=== PATIENT | female | born 1975 | race Caucasian/White ===

== ENCOUNTER 2017-08-14 14:15 | Emergency (ER) | payer SELFPAY ==
[2017-08-14] MEDS ORDERED: predniSONE 20 MG TAB ONE (14:31)
== END 2017-08-14 15:28 | disposition home or self-care (01) ==
LOC: SCSER 14:15
DX: J45.901 Unspecified asthma with (acute) exacerbation (principal); J06.9 Acute upper respiratory infection, unspecified; F17.210 Nicotine dependence, cigarettes, uncomplicated
CPT/HCPCS: 94640; J7506; J7620

== ENCOUNTER 2018-06-27 21:42 | Emergency (ER) | payer SELFPAY ==
--- NOTE | 2018-06-27 23:06 | ULT ---
RIGHT LOWER EXTREMITY VENOUS DOPPLER ULTRASOUND EVALUATION 06/27/18 HISTORY: Right lower extremity pain. Multiple longitudinal and transverse images of the right lower extremity venous system is obtained us ing a multihertz linear array transducer. Real time, color flow and spectral waveform doppler analysi s demonstrates no evidence of acute or old clots seen in the right common femoral, superficial femora l, femoral profunda, popliteal vein, posterior tibial vein, post trifurcation veins and right greater saphenous vein. IMPRESSION: No evidence of right lower extremity deep venous thrombosis. POS: [facility]
== END 2018-06-27 23:18 | disposition home or self-care (01) ==
LOC: SCSER 21:42
DX: L03.115 Cellulitis of right lower limb (principal); J44.9 Chronic obstructive pulmonary disease, unspecified; F17.210 Nicotine dependence, cigarettes, uncomplicated

== ENCOUNTER 2019-10-02 12:35 | Inpatient (IN) | payer SELFPAY ==
--- NOTE | 2019-10-02 14:18 | RAD ---
PA AND LATERAL CHEST: Date: 10/02/2019 HISTORY: Cough and fever. COMPARISON: 05/12/09 study. FINDINGS: Heart size and mediastinum are within normal limits. Lungs are clear of infiltrates. No significant b priscila findings. IMPRESSION: No active intrathoracic disease. POS: [facility]
[2019-10-02] MEDS ORDERED: Acetaminophen 500 MG TAB ONE (14:21)
[2019-10-02] MEDS ORDERED: Ibuprofen 200 MG TAB ONE (14:21)
[2019-10-02 14:48] LABS: Bacteria/HPF 3+ HPF (None Seen); Bilirubin Negative (Negative); Blood, Urine 2+ (Negative); Clarity Turbid (Clear); Glucose, Urine (Dipstick) Normal (Negative); Leukocyte 500 Leu/uL (Negative); Nitrite 1+ (Negative); Protein, Urine (Dipstick) 30 mg/dL (Neg-Trace); Squamous Epithelial 0-3 HPF (0-3); Urobilinogen Normal mg/dL (Less than 2); WBC/HPF Greater than 50 HPF (0-3)
[2019-10-02] MEDS ORDERED: Morphine 4 MG/ML VIAL ONE (15:09)
[2019-10-02] MEDS ORDERED: cefTRIAXone\\ROCEPHIN 2 GM VIAL ONE (15:09)
[2019-10-02] MEDS ORDERED: Ondansetron PF 4 MG/2 ML Vial ONE (15:09)
[2019-10-02 15:28] LABS: #Lymphocytes 1.2 thou/uL (1.20-3.40); #Monocytes 1.7 thou/uL (0.11-0.59); #Neutrophils 11.8 thou/uL (1.40-6.50); %Basophils 0.2 % (0.0-1.0); %Eosinophils 0.1 % (0.0-10.0); %Lymphocytes 8.4 % (21.0-51.0); %Monocytes 11.4 % (0.0-10.0); Hemoglobin 12.2 g/dL (12.0-16.0); Mean Corpuscular HGB CONC 33.6 g/dL (32.0-36.0); Mean Corpuscular Hemoglobin 30.3 pg (27.0-31.0); Mean Corpuscular Volume 90.2 fL (78.0-98.0); Mean Platelet Volume 6.9 fL (7.4-10.4); Platelet Count 297 thou/uL (130-400); RBC Distribution Width 12.1 % (11.5-14.5); Red Blood Cell (RBC) Count 4.01 mill/uL (4.20-5.40); White Blood Cell (WBC) Count 14.8 thou/uL (4.8-10.8)
[2019-10-02 15:43] LABS: BHCG - Serum Negative (NEGATIVE); Pregs Control Background? CLEAR/WHITE (CLR/WHITE); Pregs Control Bar Appear? YES (CONTROL BAR)
[2019-10-02 15:50] LABS: ALT (SGPT) 114 U/L (8-55); AST (SGOT) 81 U/L (5-34); Albumin 3.4 g/dL (3.5-5.0); Alkaline Phosphatase 256 U/L (40-110); Anion Gap 14 mmol/L (10-20); BUN (Urea Nitrogen) 7 mg/dL (7.0-18.7); Bilirubin, Total 0.8 mg/dL (0.2-1.2); CK (CPK) 26 U/L (29-168); Calc. Creatinine Clearance 0 mL/min (70-130); Calcium 8.9 mg/dL (7.8-10.44); Carbon Dioxide 25 mmol/L (22-29); Chloride 96 mmol/L (98-107); Estimated GFR-MDRD 61; Globulin 3.5 g/dL (2.4-3.5); Glucose 113 mg/dL (70-105); Potassium 3.2 mmol/L (3.5-5.1); Protein, Total 6.9 g/dL (6.0-8.3); Sodium 132 mmol/L (136-145)
--- NOTE | 2019-10-02 16:28 | CT ---
CT Stone Protocol 10/02/2019 3:08 PM HISTORY: Fever, flulike syndrome. Urinary complaints. COMPARISON: None. Technique: Multiple contiguous axial CT images are obtained through the abdomen and pelvis without IV contrast. Coronal reformats are provided. FINDINGS: This examination is limited for the evaluation of solid organs and vascular structures due to the lac k of intravenous contrast. Lower Chest: within normal limits. Abdomen: Liver: Grossly normal non-enhanced CT appearance. Gallbladder: Within normal limits for CT imaging. Pancreas: Grossly normal nonenhanced CT appearance. Spleen: Grossly normal nonenhanced CT appearance. Adrenals: Mild symmetric thickening of the adrenal glands which may be related to adrenal hyperplasia . Kidneys: Multiple scattered nonobstructing bilateral renal calculi are seen. Largest nonobstructing c alculus midportion right kidney measures 5 mm. No hydronephrosis is present. Subcentimeter too small to characterize hypodense lesions are seen in each kidney. Minimal bilateral but symmetric ksenia nephric stranding is seen. There is mild perinephric stranding adjacent to each proximal ureter with suggestion of mild thickening of the simpson of each proximal ureter and renal pelvis. This is ove rall nonspecific on this nonenhanced CT scan exam. However, infection cannot be excluded. Ureters: No ureteral calculus is seen.. Pelvis: Urinary bladder: within normal limits. Reproductive Organs: Grossly within normal limits for nonenhanced CT appearance. Lymph Nodes: No enlarged lymph nodes. Bowel: Normal caliber loops of small bowel. Moderate amount retained fecal material in the ascending and transverse colon. Appendix: At the upper limits of normal in size, but gas is seen within the appendix. Tiny appendicol ith is present in the midportion of the appendix. Peritoneum: No free fluid, free air, or fluid collection. Retroperitoneum: within normal limits. Vessels: Abdominal aorta is normal in caliber.. Abdominal Wall: within normal limits. Bones: No suspicious lytic or sclerotic osseous lesions are identified. IMPRESSION: 1. Multiple nonobstructing bilateral renal calculi. 2. Minimal stranding adjacent to each renal pelvis and proximal ureter which is overall nonspecific. Infection cannot be entirely excluded. Correlation with urinalysis is recommended. No hydronephrosis is present. 3. Subcentimeter too small to characterize hypodense lesions in each kidney.
[2019-10-02] MEDS ORDERED: Ondansetron ODT 4 MG TAB SL PRN (16:38)
[2019-10-02] MEDS ORDERED: Ondansetron PF 4 MG/2 ML Vial IVP PRN ×2 (16:38→19:09)
[2019-10-02] MEDS ORDERED: HYDROcodone/Acetaminophen 5/325 mg Tablet PO PRN ×2 (16:38)
[2019-10-02] MEDS ORDERED: Acetaminophen 325 MG TAB PO PRN (16:38)
--- NOTE | 2019-10-02 17:01 | PDOC.FPRHP ---
- History of Present Illness Chief Complaint: back pain History of Present Illness: Ms. Marino is a 44 yo f with no sig pmhx presenting with back pain and fever she reports that 9 days ago she began to have back pain and dysuria, she presented to an urgent care and was dx presumptively with flu, treated with tamiflu. after she continued to have fever and begun having hallucinations she presented to our ED. She additionally reports decreased PO intake, body aches, chills, abd/back pain, difficulty ambulating. she denies hx of kidney dz/stones , vaginal discharge, joint pain, syncope, or seizure. ED Course: vanc, ceftriaxone, 1L NS - Allergies/Adverse Reactions Allergies Allergy/AdvReac Type Severity Reaction Status Date / Time iodine Allergy Unverified 10/02/19 15:04 - History PMHx:none PSHx: CSx2 FHx:htn, dmII Social: tobacco use, distant drug use - Review of Systems General: reports: fever/chills, weight/appetite/sleep changes, fatigue Eyes: denies: vision changes ENT: denies: rhinorrhea Respiratory: denies: cough, congestion, shortness of breath Cardiovascular: denies: chest pain, palpitation Gastrointestinal: reports: nausea. denies: vomiting, diarrhea Genitourinary: reports: dysuria Skin: denies: rashes Musculoskeletal: denies: pain, tenderness Neurological: denies: syncope, seizure - Vital signs 112/69, Pulse: 87, Resp: 15, Temp: 98.4 (Oral), Pain: 0, O2 sat: 98 on (Room Air - Physical Exam Constitutional: NAD HEENT: normocephalic and atraumatic, grossly normal vision, grossly normal hearing, MMM Neck: trachea midline Chest: no-tender to palpation Heart: RRR, normal S1/S2 Lungs: CTAB, no respiratory distress Abdomen: soft, bowel sounds present, other (tender over suprapubic area) Musculoskeletal: normal structure, other (b/l CVA tenderness) Neurological: no focal deficit Skin: no rash/lesions, good turgor Heme/Lymphatic: no unusual bruising or bleeding Psychiatric: normal mood and affect FMR H&P: Results - Labs Result Diagrams: 10/02/19 15:11 10/02/19 15:12 Lab results: WBC 14.8 thou/uL (4.8-10.8) H 10/02/19 15:11 Hgb 12.2 g/dL (12.0-16.0) 10/02/19 15:11 Hct 36.2 % (36.0-47.0) 10/02/19 15:11 MCV 90.2 fL (78.0-98.0) 10/02/19 15:11 Plt Count 297 thou/uL (130-400) 10/02/19 15:11 Neutrophils % 80.0 % (42.0-75.0) H 10/02/19 15:11 Sodium 132 mmol/L (136-145) L 10/02/19 15:12 Potassium 3.2 mmol/L (3.5-5.1) L 10/02/19 15:12 Chloride 96 mmol/L (98-107) L 10/02/19 15:12 Carbon Dioxide 25 mmol/L (22-29) 10/02/19 15:12 BUN 7 mg/dL (7.0-18.7) 10/02/19 15:12 Creatinine 0.99 mg/dL (0.6-1.1) 10/02/19 15:12 Glucose 113 mg/dL (70-105) H 10/02/19 15:12 Lactic Acid 1.1 mmol/L (0.5-2.2) 10/02/19 15:11 Calcium 8.9 mg/dL (7.8-10.44) 10/02/19 15:12 Total Bilirubin 0.8 mg/dL (0.2-1.2) 10/02/19 15:12 AST 81 U/L (5-34) H 10/02/19 15:12 ALT 114 U/L (8-55) H 10/02/19 15:12 Alkaline Phosphatase 256 U/L (40-110) H 10/02/19 15:12 Creatine Kinase 26 U/L (29-168) L 10/02/19 15:12 Serum Total Protein 6.9 g/dL (6.0-8.3) 10/02/19 15:12 Albumin 3.4 g/dL (3.5-5.0) L 10/02/19 15:12 Urine Ketones Negative mg/dL (Negative) 10/02/19 14:25 Urine Blood 2+ (Negative) A 10/02/19 14:25 Urine Nitrite 1+ (Negative) A 10/02/19 14:25 Ur Leukocyte Esterase 500 Gomez/uL (Negative) A 10/02/19 14:25 Urine RBC 11-20 HPF (0-3) A 10/02/19 14:25 Urine WBC Greater than 50 HPF (0-3) A 10/02/19 14:25 Ur Squamous Epith Cells 0-3 HPF (0-3) 10/02/19 14:25 Urine Bacteria 3+ HPF (None Seen) A 10/02/19 14:25 FMR H&P: A/P - Problem List (1) Pyelonephritis Current Visit: Yes Status: Acute Code(s): N12 - TUBULO-INTERSTITIAL NEPHRITIS, NOT SPCF ACUTE OR CHRONIC (2) Hypokalemia Current Visit: Yes Status: Acute Code(s): E87.6 - HYPOKALEMIA - Plan sepsis 2/2 pyelonephritis - WBC, febrile, CVA tenderness, tachycardic, +UA - CT reveals b/l fat stranding, no stones/abscess - continue rocephin - IVF rescus hypokalemia - replace with IVF Transaminitis - likely related to above - fluid rescus and monitor code: full ppx: lovenox dispo: admit to [facility] for LOS>48hrs FMR H&P: Upper Level - Plan Date/Time: 10/02/19 2217 I, [], have evaluated this patient and agree with findings/plan as outlined by management internship resident. Pertinent changes/additions are listed here. Addendum - Attending - Attending Attestation Date/Time: 10/02/19 0148 I personally evaluated the patient and discussed the management with Dr. Medina I agree with the History, Examination, Assessment and Plan documented above with any addition or exceptions noted below. 44 yo WF PMH asthma and nephrolithiasis. presents with 9 day hx of fever up to 104F and left sided back pain. initially tachycardic and febrile in ER. Patient had benign exam but had receive morphine. VSS at time of my examination. Labs show elevated WBC with left shift. UA concerning for infection. CXR negative. CT showed perinephric fat stranding bilaterally. Admit for acute pyelonephritis. cultures pending. continue rocephin. No recent surgery/ instrumentation in urinary system. Add GC/CT as patient concerned about STI due to spouse infidelity. Inpatient, medical, >2 midnights.
[2019-10-02] MEDS ORDERED: Morphine 4 MG/ML VIAL IV PRN (18:47)
[2019-10-02] MEDS ORDERED: Acetaminophen 650 MG Suppository PR PRN (19:09)
[2019-10-02] MEDS ORDERED: Potassium Chloride 40 MEQ in Lactated Ringer's 1,000 ML IV SCH (19:09)
[2019-10-02] MEDS ORDERED: Ondansetron ODT 4 MG TAB PO PRN (19:09)
[2019-10-02] MEDS: Sodium Chloride 0.9% 1,000 ML IV SCH (20:40)
[2019-10-02 20:49] VITALS: BMI 28.2
[2019-10-02] MEDS: Lactated Ringer's 1,000 ML IV SCH (23:14)
[2019-10-03] MEDS: Sodium Chloride 0.9% 1,000 ML IV SCH (02:31)
[2019-10-03] MEDS: Lactated Ringer's 1,000 ML IV SCH (02:42)
[2019-10-03 06:11] LABS: #Lymphocytes 1.3 thou/uL (1.20-3.40); #Monocytes 1.9 thou/uL (0.11-0.59); #Neutrophils 11.1 thou/uL (1.40-6.50); %Basophils 0.1 % (0.0-1.0); %Eosinophils 0.2 % (0.0-10.0); %Lymphocytes 9.3 % (21.0-51.0); %Monocytes 13.3 % (0.0-10.0); %Neutrophils 77.1 % (42.0-75.0); Hemoglobin 11.5 g/dL (12.0-16.0); Mean Corpuscular Hemoglobin 30.3 pg (27.0-31.0); Mean Corpuscular Volume 91.9 fL (78.0-98.0); Mean Platelet Volume 7.3 fL (7.4-10.4); Platelet Count 310 thou/uL (130-400); RBC Distribution Width 12.3 % (11.5-14.5); Red Blood Cell (RBC) Count 3.79 mill/uL (4.20-5.40); White Blood Cell (WBC) Count 14.4 thou/uL (4.8-10.8)
[2019-10-03 06:36] LABS: ALT (SGPT) 109 U/L (8-55); AST (SGOT) 88 U/L (5-34); Albumin 2.9 g/dL (3.5-5.0); Alkaline Phosphatase 239 U/L (40-110); Anion Gap 11 mmol/L (10-20); BUN (Urea Nitrogen) 6 mg/dL (7.0-18.7); Bilirubin, Total 0.5 mg/dL (0.2-1.2); Calc. Creatinine Clearance 112 mL/min (70-130); Calcium 8.7 mg/dL (7.8-10.44); Carbon Dioxide 23 mmol/L (22-29); Chloride 106 mmol/L (98-107); Estimated GFR-MDRD 79; Globulin 3.3 g/dL (2.4-3.5); Glucose 123 mg/dL (70-105); Potassium 3.9 mmol/L (3.5-5.1); Protein, Total 6.2 g/dL (6.0-8.3); Sodium 136 mmol/L (136-145)
--- NOTE | 2019-10-03 09:02 | PDOC.FM ---
- Subjective Subjective: pt resting in bed, reports back pain, fevers overnight - Objective Vital Signs & Weight: Vital Signs (12 hours) Temp Pulse Resp BP Pulse Ox 10/03/19 04:00 99.0 F 91 16 105/68 96 10/03/19 00:00 100.3 F H 93 16 124/85 99 Weight Weight 77 kg I&O: 10/02/19 10/03/19 10/04/19 06:59 06:59 06:59 Intake Total 2006 Balance 2006 Result Diagrams: 10/03/19 05:53 10/03/19 05:53 Phys Exam - Physical Examination Constitutional: NAD HEENT: moist MMs Neck: supple Respiratory: clear to auscultation bilateral Cardiovascular: RRR, no significant murmur Gastrointestinal: soft Musculoskeletal: pulses present Neurological: moves all 4 limbs Psychiatric: normal affect Skin: no rash Dx/Plan (1) Pyelonephritis Code(s): N12 - TUBULO-INTERSTITIAL NEPHRITIS, NOT SPCF ACUTE OR CHRONIC Status: Acute (2) Hypokalemia Code(s): E87.6 - HYPOKALEMIA Status: Acute - Plan Plan: sepsis 2/2 pyelonephritis - WBC, febrile, CVA tenderness, tachycardic, +UA - CT reveals b/l fat stranding, no stones/abscess - continue rocephin - IVF rescus hypokalemia - replace with IVF Transaminitis - likely related to above - fluid rescus and monitor code: full ppx: lovenox dispo: control pain, await UCx for oral abx choice Addendum - Attending - Attending Attestation Date/Time: 10/03/19 1013 I personally evaluated the patient and discussed the management with Dr. Medina. I agree with the History, Examination, Assessment and Plan documented above with any addition or exceptions noted below. Patient here with sepsis 2/2 pyelonephritis, improving. She had low grade temp overnight, but no overt fever. Symptomatically improved. Blood counts improving as is PCT. Continue Rocephin, IVF, await final cultures. Pain control with NSAIDs as needed.
[2019-10-03] MEDS: Enoxaparin Sodium 40 MG/0.4 ML SYRINGE SC SCH (10:15)
[2019-10-03] MEDS: Acetaminophen 325 MG TAB PO PRN ×2 (10:15→20:03)
[2019-10-03] MEDS: Ketorolac Tromethamine 30 MG/ML VIAL IVP PRN (10:15)
[2019-10-03] MEDS ORDERED: cefTRIAXone\\ROCEPHIN 1 GM in Sodium Chloride 0.9% 100 ML IVPB SCH (15:00)
[2019-10-03] MEDS ORDERED: FLU VACC QS2019-20(6MOS UP)/PF 60 MCG/0.5 ML SYRINGE IM ONE (21:00)
[2019-10-03 23:08] LABS: Chlam.trachomatis by PCR,Urine Not Detected (NotDetected)
[2019-10-04] MEDS: Acetaminophen 325 MG TAB PO PRN (03:47)
[2019-10-04 05:32] LABS: #Eosinphils 0.1 thou/uL (0.0-0.7); #Lymphocytes 1.8 thou/uL (1.20-3.40); #Monocytes 1.1 thou/uL (0.11-0.59); #Neutrophils 10.4 thou/uL (1.40-6.50); %Lymphocytes 13.2 % (21.0-51.0); %Monocytes 8.2 % (0.0-10.0); %Neutrophils 77.6 % (42.0-75.0); Hemoglobin 11.6 g/dL (12.0-16.0); Mean Corpuscular HGB CONC 32.7 g/dL (32.0-36.0); Mean Corpuscular Hemoglobin 30.4 pg (27.0-31.0); Mean Corpuscular Volume 92.9 fL (78.0-98.0); Mean Platelet Volume 7.1 fL (7.4-10.4); Platelet Count 365 thou/uL (130-400); RBC Distribution Width 12.6 % (11.5-14.5); Red Blood Cell (RBC) Count 3.82 mill/uL (4.20-5.40); White Blood Cell (WBC) Count 13.3 thou/uL (4.8-10.8)
[2019-10-04 05:56] LABS: ALT (SGPT) 150 U/L (8-55); AST (SGOT) 111 U/L (5-34); Alkaline Phosphatase 272 U/L (40-110); Anion Gap 11 mmol/L (10-20); BUN (Urea Nitrogen) 7 mg/dL (7.0-18.7); Bilirubin, Total 0.4 mg/dL (0.2-1.2); Calc. Creatinine Clearance 103 mL/min (70-130); Calcium 8.8 mg/dL (7.8-10.44); Carbon Dioxide 26 mmol/L (22-29); Chloride 104 mmol/L (98-107); Estimated GFR-MDRD 72; Globulin 2.9 g/dL (2.4-3.5); Glucose 104 mg/dL (70-105); Protein, Total 5.9 g/dL (6.0-8.3); Sodium 137 mmol/L (136-145)
--- NOTE | 2019-10-04 07:01 | PDOC.FM ---
- Subjective Subjective: pt resting comfortably in bed, pain and fever have improved, tolerating PO - Objective Vital Signs & Weight: Vital Signs (12 hours) Temp Pulse Resp BP Pulse Ox 10/04/19 05:10 98.6 F 10/04/19 04:00 100.9 F H 98 20 139/80 98 10/04/19 00:00 99.3 F 91 20 123/82 100 10/03/19 22:39 99 10/03/19 19:57 102.3 F H 110 H 20 151/99 H 99 Weight Weight 77 kg I&O: 10/03/19 10/04/19 10/05/19 06:59 06:59 06:59 Intake Total 2006 Balance 2006 Result Diagrams: 10/04/19 05:11 10/04/19 05:11 Phys Exam - Physical Examination Constitutional: NAD HEENT: moist MMs Neck: no JVD Gastrointestinal: non-tender, no distention Musculoskeletal: no edema Neurological: moves all 4 limbs Psychiatric: normal affect Skin: no rash Dx/Plan (1) Pyelonephritis Code(s): N12 - TUBULO-INTERSTITIAL NEPHRITIS, NOT SPCF ACUTE OR CHRONIC Status: Acute (2) Hypokalemia Code(s): E87.6 - HYPOKALEMIA Status: Acute - Plan Plan: sepsis 2/2 pyelonephritis - WBC, febrile, CVA tenderness, tachycardic, +UA - CT reveals b/l fat stranding, no stones/abscess - dc rocephin transition to omnicef hypokalemia - resolved Transaminitis - likely related to above - recommend outpt fu code: full ppx: lovenox dispo: dc on omnicef, outpt fu of LFTs Addendum - Attending - Attending Attestation Date/Time: 10/04/19 1056 I personally evaluated the patient and discussed the management with Dr. Medina. I agree with the History, Examination, Assessment and Plan documented above with any addition or exceptions noted below. Patient doing well. She is tolerating PO and off IV fluids. Her cultures have resulted with E. coli, sensitive to current abx regimen. If feeling well later today, she can be discharged home on course of PO abx. Labs reassuring this morning.
[2019-10-04] MEDS: Enoxaparin Sodium 40 MG/0.4 ML SYRINGE SC SCH (08:24)
[2019-10-04] MEDS: Ketorolac Tromethamine 30 MG/ML VIAL IVP PRN (08:39)
[2019-10-04] MEDS ORDERED: FLU VACC QS2019-20(6MOS UP)/PF 60 MCG/0.5 ML SYRINGE IM ONE (09:00)
[2019-10-04 11:35] VITALS: BP 120/74; TEMP 98.5
== END 2019-10-04 14:10 | disposition home or self-care (01) | DRG 872 ==
LOC: ERS 12:35 → T4-B 18:30
PROVIDERS: ADMIT Family Medicine; ATTEND Family Medicine
DX: A41.9 Sepsis, unspecified organism (principal); N10 Acute pyelonephritis; Z91.041 Radiographic dye allergy status; F17.200 Nicotine dependence, unspecified, uncomplicated; E87.6 Hypokalemia; J45.909 Unspecified asthma, uncomplicated; B96.20 Unspecified Escherichia coli [E. coli] as the cause of diseases classified elsewhere; Z87.891 Personal history of nicotine dependence
CPT/HCPCS: 36415; 71046; 74176; 80053; 81003; 81015; 82550; 83605; 83735; 84145; 84703; 85025; 87040; 87077; 87086; 87149; 87186; 87491; 87591; 87804; 90471; 90686; 90732; 96361; 96365; 96366; 96367; 96375; G0008; G0009; J0696; J1650; J1885; J2270; J2405; J3370; J3480; J3490; J7050; J7120; Q0162

== ENCOUNTER 2020-05-28 22:53 | Emergency (ER) | payer SELFPAY ==
[2020-05-29] MEDS ORDERED: Acetaminophen 500 MG TAB ONE (00:07)
[2020-05-29] MEDS ORDERED: Morphine 4 MG/ML VIAL ONE (00:30)
[2020-05-29] MEDS ORDERED: Ketorolac Tromethamine 30 MG/ML VIAL ONE (00:31)
[2020-05-29 01:45] LABS: Bacteria/HPF 1+ HPF (None Seen); Bilirubin Negative (Negative); Blood, Urine Negative (Negative); Clarity Turbid (Clear); Glucose, Urine (Dipstick) Normal (Negative); Ketone, Urine Negative (Negative); Leukocyte 500 Leu/uL (Negative); Nitrite Negative (Negative); Protein, Urine (Dipstick) Negative (Neg-Trace); Specific Gravity, Urine 1.004 (1.002-1.036); Squamous Epithelial 21-50 HPF (0-3); Urobilinogen Normal mg/dL (Less than 2); WBC/HPF 21-50 HPF (0-3)
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
== END 2020-05-29 01:53 | disposition home or self-care (01) ==
LOC: ERS 22:53
DX: R51.9 Headache, unspecified (principal); J44.9 Chronic obstructive pulmonary disease, unspecified; Z87.891 Personal history of nicotine dependence; V29.9XXA Motorcycle rider (driver) (passenger) injured in unspecified traffic accident, initial encounter
CPT/HCPCS: 70450; 71045; 72125; 81003; 81015; 96372; J1885; J2270

== ENCOUNTER 2021-01-17 19:19 | Emergency (ER) | payer SELFPAY ==
[2021-01-17 20:52] LABS: #Eosinphils 0.4 thou/uL (0.0-0.7); #Monocytes 0.8 thou/uL (0.11-0.59); #Neutrophils 6.3 thou/uL (1.40-6.50); %Basophils 0.5 % (0.0-1.0); %Eosinophils 4.6 % (0.0-10.0); %Lymphocytes 11.9 % (21.0-51.0); Hemoglobin 13.9 g/dL (12.0-16.0); Mean Corpuscular HGB CONC 33.4 g/dL (32.0-36.0); Mean Corpuscular Hemoglobin 29.9 pg (27.0-31.0); Mean Corpuscular Volume 89.4 fL (78.0-98.0); Mean Platelet Volume 6.4 fL (7.4-10.4); Platelet Count 360 thou/uL (130-400); RBC Distribution Width 11.7 % (11.5-14.5); Red Blood Cell (RBC) Count 4.66 mill/uL (4.20-5.40); White Blood Cell (WBC) Count 8.5 thou/uL (4.8-10.8)
[2021-01-17 21:00] LABS: ALT (SGPT) 30 U/L (8-55); AST (SGOT) 22 U/L (5-34); Albumin 4.1 g/dL (3.5-5.0); Alkaline Phosphatase 104 U/L (40-110); Anion Gap 15 mmol/L (10-20); BUN (Urea Nitrogen) 8 mg/dL (7.0-18.7); Bilirubin, Total 0.3 mg/dL (0.2-1.2); Calc. Creatinine Clearance 0 mL/min (70-130); Calcium 9.3 mg/dL (7.8-10.44); Carbon Dioxide 22 mmol/L (22-29); Chloride 105 mmol/L (98-107); Globulin 3.5 g/dL (2.4-3.5); Glucose 104 mg/dL (70-105); Potassium 3.7 mmol/L (3.5-5.1); Protein, Total 7.6 g/dL (6.0-8.3); Sodium 138 mmol/L (136-145)
[2021-01-17] MEDS ORDERED: Dexamethasone 10 MG/ML VIAL ONE (21:20)
== END 2021-01-17 22:23 | disposition home or self-care (01) ==
LOC: ERS 19:19
DX: J44.1 Chronic obstructive pulmonary disease with (acute) exacerbation (principal); F17.210 Nicotine dependence, cigarettes, uncomplicated
CPT/HCPCS: 71045; 80053; 85025; 93005; 96374; J1100; J7620

== ENCOUNTER 2021-05-31 20:37 | Emergency (ER) | payer SELFPAY ==
[2021-05-31] MEDS ORDERED: Acetaminophen 500 MG TAB ONE (21:23)
[2021-05-31 21:24] LABS: #Eosinphils 0.3 thou/uL (0.0-0.7); #Lymphocytes 1.5 thou/uL (1.20-3.40); #Neutrophils 5.9 thou/uL (1.40-6.50); %Basophils 0.3 % (0.0-1.0); %Eosinophils 3.1 % (0.0-10.0); %Lymphocytes 16.8 % (21.0-51.0); %Monocytes 11.2 % (0.0-10.0); %Neutrophils 68.6 % (42.0-75.0); Mean Corpuscular HGB CONC 35.3 g/dL (32.0-36.0); Mean Corpuscular Hemoglobin 31.3 pg (27.0-31.0); Mean Corpuscular Volume 88.8 fL (78.0-98.0); Mean Platelet Volume 6.4 fL (7.4-10.4); Platelet Count 305 thou/uL (130-400); RBC Distribution Width 11.4 % (11.5-14.5); Red Blood Cell (RBC) Count 4.17 mill/uL (4.20-5.40); White Blood Cell (WBC) Count 8.7 thou/uL (4.8-10.8)
[2021-05-31 21:27] LABS: BHCG - Serum Negative (NEGATIVE); Pregs Control Background? CLEAR/WHITE (CLR/WHITE); Pregs Control Bar Appear? YES (CONTROL BAR)
[2021-05-31 21:43] LABS: ALT (SGPT) 18 U/L (8-55); AST (SGOT) 16 U/L (5-34); Albumin 4.1 g/dL (3.5-5.0); Alkaline Phosphatase 72 U/L (40-110); Anion Gap 16 mmol/L (10-20); BUN (Urea Nitrogen) 8 mg/dL (7.0-18.7); Bilirubin, Total 0.3 mg/dL (0.2-1.2); Calc. Creatinine Clearance 0 mL/min (70-130); Calcium 9.4 mg/dL (7.8-10.44); Carbon Dioxide 20 mmol/L (22-29); Chloride 104 mmol/L (98-107); Globulin 3.1 g/dL (2.4-3.5); Glucose 101 mg/dL (70-105); Potassium 3.9 mmol/L (3.5-5.1); Protein, Total 7.2 g/dL (6.0-8.3); Sodium 136 mmol/L (136-145)
[2021-05-31] MEDS ORDERED: Albuterol 200 PUFF (6.7GM INHALER) ONE ×2 (22:34→23:19)
[2021-05-31] MEDS ORDERED: methylPREDNISolone Sod Succ/PF 125 MG/2 ML VIAL ONE (22:34)
[2021-05-31] MEDS ORDERED: Magnesium 2 GM/50 ML BAG (IN WATER) ONE ×2 (23:13→23:21)
[2021-06-01 00:25] LABS: SARS-CoV-2 NAA Rapid Test Not Detected (NotDetected)
== END 2021-06-01 02:30 | disposition home or self-care (01) ==
LOC: ERS 20:37
DX: J45.901 Unspecified asthma with (acute) exacerbation (principal); J18.9 Pneumonia, unspecified organism; Z20.822 Contact with and (suspected) exposure to COVID-19; Z87.891 Personal history of nicotine dependence
CPT/HCPCS: 71045; 80053; 84484; 84703; 85025; 93005; 96365; 96375; J2930; J3475; J7620; U0002

== ENCOUNTER 2021-06-02 01:06 | Inpatient (IN) | payer SELFPAY ==
[2021-06-02] MEDS ORDERED: Magnesium 2 GM/50 ML BAG (IN WATER) ONE (01:34)
[2021-06-02] MEDS ORDERED: methylPREDNISolone Sod Succ/PF 125 MG/2 ML VIAL ONE (01:34)
[2021-06-02 02:26] LABS: #Lymphocytes 2.2 thou/uL (1.20-3.40); #Monocytes 1.5 thou/uL (0.11-0.59); #Neutrophils 12.9 thou/uL (1.40-6.50); %Basophils 0.2 % (0.0-1.0); %Eosinophils 0.2 % (0.0-10.0); %Lymphocytes 13.1 % (21.0-51.0); %Monocytes 8.9 % (0.0-10.0); %Neutrophils 77.6 % (42.0-75.0); Hemoglobin 12.6 g/dL (12.0-16.0); Mean Corpuscular HGB CONC 35.1 g/dL (32.0-36.0); Mean Corpuscular Hemoglobin 31.1 pg (27.0-31.0); Mean Corpuscular Volume 88.8 fL (78.0-98.0); Mean Platelet Volume 6.4 fL (7.4-10.4); Platelet Count 360 thou/uL (130-400); RBC Distribution Width 11.8 % (11.5-14.5); Red Blood Cell (RBC) Count 4.06 mill/uL (4.20-5.40); White Blood Cell (WBC) Count 16.6 thou/uL (4.8-10.8)
[2021-06-02] MEDS ORDERED: cefTRIAXone\\ROCEPHIN 1 GM VIAL ONE (02:27)
[2021-06-02 02:33] LABS: Bacteria/HPF None Seen HPF (None Seen); Bilirubin Negative (Negative); Blood, Urine 1+ (Negative); Clarity Clear (Clear); Glucose, Urine (Dipstick) Normal (Negative); Ketone, Urine Negative (Negative); Leukocyte Negative Leu/uL (Negative); Nitrite Negative (Negative); Pregnancy Test - Urine (BHCG) Negative (Negative); Pregu Control Background? CLEAR/WHITE (CLR/WHITE); Pregu Control Bar Appear? YES (CONTROL BAR); Protein, Urine (Dipstick) Negative (Neg-Trace); Specific Gravity 1.023 (1.002-1.036); Specific Gravity, Urine 1.023 (1.002-1.036); Squamous Epithelial 0-3 HPF (0-3); Urobilinogen Normal mg/dL (Less than 2); pH, Urine 5.5 (5.0-9.0)
[2021-06-02] MEDS ORDERED: Albuterol Sulfate 2.5 mg/3 ml Neb ONE (02:41)
[2021-06-02] MEDS ORDERED: Albuterol Sulfate 2.5 mg/0.5 ml Neb ONE (02:41)
[2021-06-02 02:44] LABS: Anion Gap 14 mmol/L (10-20); BUN (Urea Nitrogen) 12 mg/dL (7.0-18.7); Calc. Creatinine Clearance 0 mL/min (70-130); Calcium 9.2 mg/dL (7.8-10.44); Carbon Dioxide 23 mmol/L (22-29); Chloride 104 mmol/L (98-107); Glucose 103 mg/dL (70-105); Potassium 3.4 mmol/L (3.5-5.1); Sodium 138 mmol/L (136-145)
[2021-06-02] MEDS ORDERED: Ondansetron PF 4 MG/2 ML Vial ONE (02:58)
[2021-06-02] MEDS ORDERED: Azithromycin 500 MG VIAL ONE (02:58)
[2021-06-02] MEDS ORDERED: Ondansetron PF 4 MG/2 ML Vial IVP PRN (04:03)
[2021-06-02] MEDS ORDERED: Potassium Chloride 20 MEQ TAB PO SCH (04:15)
[2021-06-02 05:17] VITALS: BMI 34.2
[2021-06-02] MEDS: Enoxaparin Sodium 40 MG/0.4 ML SYRINGE SC SCH (08:42)
[2021-06-02] MEDS: Famotidine 20 MG TAB PO SCH ×2 (08:42→21:29)
[2021-06-02] MEDS: methylPREDNISolone Sod Succ 40 MG VIAL IVP SCH ×2 (11:30→18:12)
[2021-06-03] MEDS: methylPREDNISolone Sod Succ 40 MG VIAL IVP SCH ×5 (00:51→23:32)
[2021-06-03] MEDS: guaiFENesin/DM ER PO PRN ×2 (00:51→23:59)
[2021-06-03] MEDS: Azithromycin 500 MG in Sodium Chloride 0.9% 250 ML 250 ML IVPB SCH (02:36)
[2021-06-03] MEDS: cefTRIAXone\\ROCEPHIN 1 GM in Sodium Chloride 0.9% 100 ML IVPB SCH (02:36)
[2021-06-03] MEDS: Acetaminophen 325 MG TAB PO PRN ×2 (02:39→17:09)
[2021-06-03 04:59] LABS: Anion Gap 16 mmol/L (10-20); BUN (Urea Nitrogen) 9 mg/dL (7.0-18.7); Calc. Creatinine Clearance 141 mL/min (70-130); Calcium 8.9 mg/dL (7.8-10.44); Carbon Dioxide 19 mmol/L (22-29); Chloride 106 mmol/L (98-107); Glucose 142 mg/dL (70-105); Potassium 4.2 mmol/L (3.5-5.1); Sodium 137 mmol/L (136-145)
[2021-06-03 08:05] LABS: #Lymphocytes 1.1 thou/uL (1.20-3.40); #Monocytes 0.3 thou/uL (0.11-0.59); #Neutrophils 15.1 thou/uL (1.40-6.50); %Eosinophils 0.3 % (0.0-10.0); %Lymphocytes 6.4 % (21.0-51.0); %Monocytes 1.8 % (0.0-10.0); %Neutrophils 91.5 % (42.0-75.0); Mean Corpuscular HGB CONC 32.6 g/dL (32.0-36.0); Mean Corpuscular Hemoglobin 29.6 pg (27.0-31.0); Mean Corpuscular Volume 90.7 fL (78.0-98.0); Mean Platelet Volume 6.7 fL (7.4-10.4); Platelet Count 333 thou/uL (130-400); RBC Distribution Width 11.9 % (11.5-14.5); Red Blood Cell (RBC) Count 4.04 mill/uL (4.20-5.40); White Blood Cell (WBC) Count 16.5 thou/uL (4.8-10.8)
[2021-06-03] MEDS: Famotidine 20 MG TAB PO SCH ×2 (08:17→20:25)
[2021-06-03] MEDS: Enoxaparin Sodium 40 MG/0.4 ML SYRINGE SC SCH (08:17)
[2021-06-03 19:46] VITALS: TEMP 98.4
[2021-06-04] MEDS: cefTRIAXone\\ROCEPHIN 1 GM in Sodium Chloride 0.9% 100 ML IVPB SCH (02:53)
[2021-06-04] MEDS: Azithromycin 500 MG in Sodium Chloride 0.9% 250 ML 250 ML IVPB SCH (03:39)
[2021-06-04 04:43] LABS: #Eosinphils 0.1 thou/uL (0.0-0.7); #Monocytes 0.5 thou/uL (0.11-0.59); #Neutrophils 16.6 thou/uL (1.40-6.50); %Basophils 0.1 % (0.0-1.0); %Eosinophils 0.4 % (0.0-10.0); %Lymphocytes 5.6 % (21.0-51.0); %Monocytes 2.8 % (0.0-10.0); %Neutrophils 91.2 % (42.0-75.0); Hemoglobin 11.6 g/dL (12.0-16.0); Mean Corpuscular HGB CONC 34.3 g/dL (32.0-36.0); Mean Corpuscular Hemoglobin 31.2 pg (27.0-31.0); Mean Platelet Volume 6.4 fL (7.4-10.4); Platelet Count 308 thou/uL (130-400); RBC Distribution Width 11.7 % (11.5-14.5); Red Blood Cell (RBC) Count 3.73 mill/uL (4.20-5.40); White Blood Cell (WBC) Count 18.2 thou/uL (4.8-10.8)
[2021-06-04 05:06] LABS: Anion Gap 12 mmol/L (10-20); BUN (Urea Nitrogen) 19 mg/dL (7.0-18.7); Calc. Creatinine Clearance 129 mL/min (70-130); Calcium 8.9 mg/dL (7.8-10.44); Carbon Dioxide 24 mmol/L (22-29); Chloride 105 mmol/L (98-107); Glucose 142 mg/dL (70-105); Magnesium 2.2 mg/dL (1.6-2.6); Potassium 4.3 mmol/L (3.5-5.1); Sodium 137 mmol/L (136-145)
[2021-06-04] MEDS: methylPREDNISolone Sod Succ 40 MG VIAL IVP SCH ×2 (06:11→12:07)
[2021-06-04 08:05] VITALS: BP 145/83
[2021-06-04] MEDS: Enoxaparin Sodium 40 MG/0.4 ML SYRINGE SC SCH (09:07)
[2021-06-04] MEDS: Famotidine 20 MG TAB PO SCH (09:07)
[2021-06-05] MEDS ORDERED: FLU VACC QS2021-22(6MOS UP)/PF 60 MCG/0.5 ML SYRINGE IM ONE (09:00)
== END 2021-06-04 17:45 | disposition home or self-care (01) | DRG 203 ==
LOC: ERS 01:06 → ONC 03:51
PROVIDERS: ADMIT Internal Medicine; ATTEND Internal Medicine
DX: J45.901 Unspecified asthma with (acute) exacerbation (principal); Z20.822 Contact with and (suspected) exposure to COVID-19; E87.6 Hypokalemia; F17.210 Nicotine dependence, cigarettes, uncomplicated; J42 Unspecified chronic bronchitis; D72.829 Elevated white blood cell count, unspecified; Z91.041 Radiographic dye allergy status; Z88.2 Allergy status to sulfonamides; Z83.3 Family history of diabetes mellitus; Z82.49 Family history of ischemic heart disease and other diseases of the circulatory system
CPT/HCPCS: 36415; 71045; 80048; 81003; 81015; 81025; 83605; 83735; 83880; 84484; 85025; 87040; 93005; 94640; 94644; 96365; 96367; 96375; J0456; J0696; J1650; J2405; J2920; J2930; J3475; J3490; J7050; J7611; J7620

== ENCOUNTER 2022-06-20 18:56 | Emergency (ER) | payer SELFPAY ==
[2022-06-20] MEDS ORDERED: Ketorolac Tromethamine 30 MG/ML VIAL ONE (19:31)
[2022-06-20 19:53] LABS: #Eosinphils 0.1 thou/uL (0.0-0.7); #Lymphocytes 1.5 thou/uL (1.20-3.40); #Monocytes 0.4 thou/uL (0.11-0.59); #Neutrophils 3.4 thou/uL (1.40-6.50); %Basophils 0.4 % (0.0-1.0); %Eosinophils 2.2 % (0.0-10.0); %Monocytes 8.1 % (0.0-10.0); %Neutrophils 62.3 % (42.0-75.0); Hemoglobin 14.4 g/dL (12.0-16.0); Mean Corpuscular HGB CONC 33.4 g/dL (32.0-36.0); Mean Corpuscular Hemoglobin 30.4 pg (27.0-31.0); Mean Corpuscular Volume 90.8 fl (78.0-98.0); Platelet Count 346 thou/uL (130-400); RBC Distribution Width 11.4 % (11.5-14.5); Red Blood Cell (RBC) Count 4.75 mill/uL (4.20-5.40); White Blood Cell (WBC) Count 5.5 thou/uL (4.8-10.8)
[2022-06-20 20:02] LABS: BHCG - Serum Negative (NEGATIVE); Pregs Control Background? CLEAR/WHITE (CLR/WHITE); Pregs Control Bar Appear? YES (CONTROL BAR)
[2022-06-20 20:25] LABS: Bacteria/HPF None Seen HPF (None Seen); Bilirubin Negative (Negative); Blood, Urine 2+ (Negative); Clarity Turbid (Clear); Glucose, Urine (Dipstick) Normal (Negative); Ketone, Urine Negative (Negative); Leukocyte 250 Leu/uL (Negative); Nitrite Negative (Negative); Protein, Urine (Dipstick) Negative (Neg-Trace); Specific Gravity, Urine 1.015 (1.002-1.036); WBC/HPF 21-50 HPF (0-3)
[2022-06-20 20:30] LABS: ALT (SGPT) 42 U/L (8-55); AST (SGOT) 41 U/L (5-34); Albumin 4.3 g/dL (3.5-5.0); Alkaline Phosphatase 98 U/L (40-110); Anion Gap 13 mmol/L (10-20); BUN (Urea Nitrogen) 7 mg/dL (7.0-18.7); Bilirubin, Total 0.8 mg/dL (0.2-1.2); Calc. Creatinine Clearance 0 mL/min (70-130); Calcium 9.6 mg/dL (7.8-10.44); Carbon Dioxide 22 mmol/L (22-29); Chloride 104 mmol/L (98-107); Estimated GFR 72; Glucose 96 mg/dL (70-105); Lipase 24 U/L (8-78); Potassium 4.2 mmol/L (3.5-5.1); Protein, Total 8.3 g/dL (6.0-8.3); Sodium 135 mmol/L (136-145)
== END 2022-06-20 21:00 | disposition home or self-care (01) ==
LOC: ERS 18:56
DX: J18.9 Pneumonia, unspecified organism (principal); J44.9 Chronic obstructive pulmonary disease, unspecified; F17.210 Nicotine dependence, cigarettes, uncomplicated; Z79.899 Other long term (current) drug therapy
CPT/HCPCS: 36415; 71045; 80053; 81003; 81015; 83690; 84484; 84703; 85025; 93005; 96372; J1885

== ENCOUNTER 2022-08-20 09:54 | Inpatient (IN) | payer SELFPAY ==
[2022-08-20] MEDS ORDERED: Magnesium 2 GM/50 ML BAG (IN WATER) ONE (10:18)
[2022-08-20] MEDS ORDERED: methylPREDNISolone Sod Succ/PF 125 MG/2 ML VIAL ONE (10:18)
[2022-08-20] MEDS ORDERED: Albuterol 200 PUFF (6.7GM INHALER) ONE (10:36)
[2022-08-20 10:38] LABS: #Eosinphils 0.4 thou/uL (0.0-0.7); #Monocytes 0.6 thou/uL (0.11-0.59); #Neutrophils 9.8 thou/uL (1.40-6.50); %Basophils 0.3 % (0.0-1.0); %Eosinophils 3.2 % (0.0-10.0); %Lymphocytes 8.4 % (21.0-51.0); %Monocytes 5.2 % (0.0-10.0); %Neutrophils 82.9 % (42.0-75.0); Mean Corpuscular HGB CONC 34.8 g/dL (32.0-36.0); Mean Corpuscular Hemoglobin 30.8 pg (27.0-31.0); Mean Corpuscular Volume 88.7 fl (78.0-98.0); Mean Platelet Volume 6.2 fL (7.4-10.4); Platelet Count 364 10x3/uL (130-400); RBC Distribution Width 11.4 % (11.5-14.5); Red Blood Cell (RBC) Count 4.53 mill/uL (4.20-5.40); White Blood Cell (WBC) Count 11.8 10x3/uL (4.8-10.8)
[2022-08-20 11:08] LABS: ALT (SGPT) 25 U/L (8-55); AST (SGOT) 21 U/L (5-34); Albumin 4.5 g/dL (3.5-5.0); Alkaline Phosphatase 89 U/L (40-110); Anion Gap 14 mmol/L (10-20); BUN (Urea Nitrogen) 10 mg/dL (7.0-18.7); Bilirubin, Total 0.5 mg/dL (0.2-1.2); Calc. Creatinine Clearance 0 mL/min (70-130); Calcium 9.3 mg/dL (7.8-10.44); Carbon Dioxide 20 mmol/L (22-29); Chloride 107 mmol/L (98-107); Estimated GFR 87; Globulin 3.1 g/dL (2.4-3.5); Glucose 120 mg/dL (70-105); Potassium 3.9 mmol/L (3.5-5.1); Protein, Total 7.6 g/dL (6.0-8.3); Sodium 137 mmol/L (136-145)
[2022-08-20 11:39] LABS: SARS-CoV-2 NAA Rapid Test Not Detected (NotDetected)
[2022-08-20 12:03] LABS: Bacteria/HPF None Seen HPF (None Seen); Bilirubin Negative (Negative); Blood, Urine 3+ (Negative); Clarity Clear (Clear); Glucose, Urine (Dipstick) Normal (Negative); Ketone, Urine Negative (Negative); Leukocyte Negative Leu/uL (Negative); Nitrite Negative (Negative); Protein, Urine (Dipstick) Negative (Neg-Trace); Specific Gravity, Urine 1.022 (1.002-1.036); Squamous Epithelial 0-3 HPF (0-3); Urobilinogen Normal mg/dL (Less than 2)
[2022-08-20 12:06] LABS: Trichomonas/HPF Rare HPF (None Seen)
[2022-08-20 12:08] LABS: Pregnancy Test - Urine (BHCG) Negative (Negative)
[2022-08-20 12:09] LABS: Pregu Control Background? CLEAR/WHITE (CLR/WHITE); Pregu Control Bar Appear? YES (CONTROL BAR); Specific Gravity 1.022 (1.002-1.036)
[2022-08-20] MEDS ORDERED: Ipratropium/Albuterol 3 ML NEB ONE (13:13)
[2022-08-20] MEDS ORDERED: Albuterol 2.5 MG/0.5 ML NEB ONE (13:14)
[2022-08-20 18:03] VITALS: BMI 35.4
[2022-08-20] MEDS ORDERED: Ipratropium/Albuterol 3 ML NEB NEB PRN (18:17)
[2022-08-20] MEDS ORDERED: Acetaminophen 325 MG TAB PO PRN (18:30)
[2022-08-20] MEDS ORDERED: Ondansetron ODT 4 MG TAB SL PRN (18:30)
[2022-08-20] MEDS ORDERED: methylPREDNISolone Sod Succ 40 MG VIAL IVP SCH (18:30)
[2022-08-20] MEDS ORDERED: Ondansetron PF 4 MG/2 ML Vial IVP PRN (18:30)
[2022-08-21] MEDS ORDERED: Ondansetron PF 4 MG/2 ML Vial IVP PRN (07:08)
[2022-08-21] MEDS ORDERED: Mometasone 200 MCG/Formoterol 5 MCG 120 PUFF INHALER INH SCH (07:30)
[2022-08-21] MEDS ORDERED: Nicotine 21 MG PATCH TD SCH (08:00)
[2022-08-21] MEDS: Ipratropium/Albuterol 3 ML NEB NEB SCH ×4 (08:02→23:42)
[2022-08-21 08:08] LABS: Acetaminophen Less than 10.0 mcg/mL (10.0-30.0); Alcohol Less than 10 mg/dL (Less than 10); Salicylate Less than 8.0 mg/dL (15.0-30.0)
[2022-08-21] MEDS ORDERED: FLU VACC QS2022-23(6MOS UP)/PF 60 MCG/0.5 ML SYRINGE IM ONE (09:00)
[2022-08-21] MEDS: Doxycycline 100 MG CAP PO SCH ×2 (09:18→20:26)
[2022-08-21] MEDS: Acetaminophen 325 MG TAB PO PRN ×2 (10:54→23:50)
[2022-08-21 11:28] LABS: Amphetamine Not Detected (NotDetected); Barbiturates Screen Not Detected (NotDetected); Benzodiazepine Screen Not Detected (NotDetected); Cocaine Metabolite Screen Not Detected (NotDetected); Methadone Not Detected (NotDetected); Methamphetamine Not Detected (NotDetected); Opiate Screen Not Detected (NotDetected); Oxycodone Screen Not Detected (NotDetected); Phencyclidine (PCP) Not Detected (NotDetected); THC/Cannabinoid Screen Not Detected (NotDetected); Tricyclic Screen Not Detected (NotDetected)
[2022-08-21] MEDS: methylPREDNISolone Sod Succ 40 MG VIAL IVP SCH ×2 (14:08→21:33)
[2022-08-21 15:40] LABS: HBCM Index 0.08 S/CO (0-0.79); HIV (1/2) Antibody/Antigen Non-Reactive (NonReactive); HIV 1/2 INDEX 0.19 S/CO (<1.00); Hep A IgM AB Non-Reactive (NonReactive); Hep B Surf Ag Non-Reactive S/CO (NonReactive); Hep C IgG Ab Non-Reactive (NonReactive); Hepatitis B Core IgM Abs Non-Reactive (NonReactive)
[2022-08-21] MEDS ORDERED: Amlodipine 10 MG TAB PO SCH (17:45)
[2022-08-21] MEDS: Mometasone 200 MCG/Formoterol 5 MCG 120 PUFF INHALER INH SCH (18:34)
[2022-08-21] MEDS: Montelukast Sodium 10 mg Tablet PO SCH (20:26)
[2022-08-21] MEDS: Guaifenesin DM 100-10/5 ML UDCUP PO PRN (23:50)
[2022-08-22] MEDS: methylPREDNISolone Sod Succ 40 MG VIAL IVP SCH ×2 (05:39→14:45)
[2022-08-22] MEDS: Ipratropium/Albuterol 3 ML NEB NEB SCH ×4 (07:47→23:25)
[2022-08-22] MEDS: Mometasone 200 MCG/Formoterol 5 MCG 120 PUFF INHALER INH SCH ×2 (07:47→19:42)
[2022-08-22 07:51] LABS: #Eosinphils 0.1 thou/uL (0.0-0.7); #Lymphocytes 1.3 thou/uL (1.20-3.40); #Monocytes 0.6 thou/uL (0.11-0.59); %Basophils 0.2 % (0.0-1.0); %Eosinophils 0.4 % (0.0-10.0); %Lymphocytes 6.8 % (21.0-51.0); %Monocytes 3.3 % (0.0-10.0); %Neutrophils 89.4 % (42.0-75.0); Hemoglobin 13.4 g/dL (12.0-16.0); Mean Corpuscular HGB CONC 33.9 g/dL (32.0-36.0); Mean Corpuscular Hemoglobin 31.4 pg (27.0-31.0); Mean Corpuscular Volume 92.6 fl (78.0-98.0); Mean Platelet Volume 6.4 fL (7.4-10.4); Platelet Count 403 10x3/uL (130-400); Red Blood Cell (RBC) Count 4.26 mill/uL (4.20-5.40)
[2022-08-22 08:06] LABS: Anion Gap 12 mmol/L (10-20); BUN (Urea Nitrogen) 12 mg/dL (7.0-18.7); Calc. Creatinine Clearance 143 mL/min (70-130); Calcium 9.4 mg/dL (7.8-10.44); Carbon Dioxide 22 mmol/L (22-29); Chloride 106 mmol/L (98-107); Estimated GFR 98; Glucose 124 mg/dL (70-105); Potassium 4.3 mmol/L (3.5-5.1); Sodium 136 mmol/L (136-145)
[2022-08-22 08:50] LABS: Hemoglobin A1c 5.4 % (4.0-6.0)
[2022-08-22] MEDS: Doxycycline 100 MG CAP PO SCH ×2 (09:30→21:28)
[2022-08-22] MEDS: metroNIDAZOLE 500 MG TAB PO SCH ×2 (09:30→21:28)
[2022-08-22] MEDS ORDERED: Amlodipine 10 MG TAB PO SCH (16:30)
[2022-08-22 16:38] LABS: Chlamydia by PCR Not Detected (NotDetected); GC by PCR Not Detected (NotDetected)
[2022-08-22] MEDS: Montelukast Sodium 10 mg Tablet PO SCH (21:28)
[2022-08-22] MEDS: Guaifenesin DM 100-10/5 ML UDCUP PO PRN (23:31)
[2022-08-22] MEDS: Acetaminophen 325 MG TAB PO PRN (23:32)
[2022-08-23] MEDS: Ipratropium/Albuterol 3 ML NEB NEB SCH ×2 (06:37→12:25)
[2022-08-23] MEDS: Mometasone 200 MCG/Formoterol 5 MCG 120 PUFF INHALER INH SCH (06:38)
[2022-08-23] MEDS ORDERED: predniSONE 5 MG TAB PO SCH (08:00)
[2022-08-23 08:18] VITALS: TEMP 98.9
[2022-08-23] MEDS ORDERED: Amlodipine 10 MG TAB PO SCH (09:00)
[2022-08-23] MEDS: Doxycycline 100 MG CAP PO SCH (09:03)
[2022-08-23] MEDS: metroNIDAZOLE 500 MG TAB PO SCH (09:03)
[2022-08-23 09:05] VITALS: BP 144/91
== END 2022-08-23 18:30 | disposition home or self-care (01) | DRG 203 ==
LOC: ERS 09:54 → ERHOLD 13:43 → T4-B 17:41 → OBSVTOIN 08-22 08:15
PROVIDERS: ADMIT Family Medicine; ATTEND Internal Medicine
DX: J45.901 Unspecified asthma with (acute) exacerbation (principal); N76.0 Acute vaginitis; A59.8 Trichomoniasis of other sites; E66.9 Obesity, unspecified; I10 Essential (primary) hypertension; B96.89 Other specified bacterial agents as the cause of diseases classified elsewhere; Z68.35 Body mass index [BMI] 35.0-35.9, adult; Z79.899 Other long term (current) drug therapy; Z79.52 Long term (current) use of systemic steroids; Z88.2 Allergy status to sulfonamides; Z91.041 Radiographic dye allergy status
CPT/HCPCS: 36415; 71045; 80048; 80053; 80074; 80306; 80307; 81003; 81015; 81025; 83036; 84484; 85025; 87389; 87480; 87491; 87510; 87591; 87633; 87660; 93005; 94640; 94644; 96365; 96372; 96375; 96376; G0378; J1650; J2920; J2930; J3475; J7512; J7611; J7620

== ENCOUNTER 2022-11-12 09:00 | Emergency (ER) | payer SELFPAY ==
[2022-11-12] MEDS ORDERED: Ketorolac Tromethamine 30 MG/ML VIAL ONE (11:01)
== END 2022-11-12 12:07 | disposition home or self-care (01) ==
LOC: ERS 09:00
DX: S76.911A Strain of unspecified muscles, fascia and tendons at thigh level, right thigh, initial encounter (principal); I10 Essential (primary) hypertension; J44.9 Chronic obstructive pulmonary disease, unspecified; F17.210 Nicotine dependence, cigarettes, uncomplicated; W18.30XA Fall on same level, unspecified, initial encounter
CPT/HCPCS: 96372; J1885

== ENCOUNTER 2025-08-12 09:28 | Emergency (ER) | payer SELFPAY ==
[2025-08-12] MEDS ORDERED: predniSONE 20 MG TAB ONE (10:01)
== END 2025-08-12 10:45 | disposition home or self-care (01) ==
LOC: ERS 09:28
DX: J45.901 Unspecified asthma with (acute) exacerbation (principal); I10 Essential (primary) hypertension; Z79.899 Other long term (current) drug therapy; Z79.51 Long term (current) use of inhaled steroids
CPT/HCPCS: J7512